=== PATIENT | female | born 1975 | race African-American/Black ===

== ENCOUNTER 2022-04-14 15:02 | Emergency (ER) | payer OTHER ==
[2022-04-14] MEDS ORDERED: EPINEPHrine 1:10,000 [1 MG/10 ML] SYRINGE IVP ONE (15:04)
== END 2022-04-14 19:49 ==
LOC: EMS 15:03
DX: I46.9 Cardiac arrest, cause unspecified (principal)
CPT/HCPCS: 31500; 92950; 99285; J0171